=== PATIENT | female | born 1950 | race Caucasian/White ===

== ENCOUNTER → 2021-09-11 | Outpatient (CLI) | payer BC ==
[~2021-09-11] MED LIST: HYDRALAZINE HCL10 MG PO
== END ==
LOC: CT 13:19
DX: R31.9 Hematuria, unspecified (principal); N28.89 Other specified disorders of kidney and ureter; K57.30 Diverticulosis of large intestine without perforation or abscess without bleeding
CPT/HCPCS: 36415; 82565; 84520; Q9967